=== PATIENT | female | born 1985 | race Caucasian/White ===

== ENCOUNTER 2023-05-22 04:07 | Inpatient (IN) | payer OTHER ==
[2023-05-22 05:40] VITALS: BMI 27.8
[2023-05-22] MEDS ORDERED: IBUPROFEN 400 MG TABLET (FP) PO PRN (08:16)
[2023-05-22] MEDS ORDERED: MAGNESIUM HYDROX 2400MG/30ML ORAL SUSPENSION 30 ML CUP PO PRN (08:16)
[2023-05-22] MEDS ORDERED: NALOXONE HCL (KLOXXADO) 8 MG SPRAY NS PRN (08:16)
[2023-05-22] MEDS ORDERED: IBUPROFEN 600 MG TABLET (FP) PO PRN (08:16)
[2023-05-22] MEDS ORDERED: BENZONATATE 200 MG CAPSULE PO PRN (08:16)
[2023-05-22] MEDS ORDERED: BISMUTH SUBSALICYLATE 524 MG/30 ML PO PRN (08:16)
[2023-05-22] MEDS ORDERED: LOPERAMIDE HCL 2 MG CAPSULE PO PRN (08:16)
[2023-05-22] MEDS ORDERED: hydrOXYzine PAMOATE 25 MG CAPSULE (FP) PO PRN (08:16)
[2023-05-22] MEDS ORDERED: NALOXONE HCL 0.4 MG/ML VIAL IM PRN (08:16)
[2023-05-22] MEDS ORDERED: POLYETHYLENE GLYCOL (HEALTHYLAX) 3350 17 GM PACKET PO PRN (08:16)
[2023-05-22] MEDS ORDERED: MAG HYDROX/AL HYDROX/SIMETH 30 ML UNIT-DOSE CUP PO PRN (08:16)
[2023-05-22] MEDS ORDERED: BENZOCAINE/MENTHOL (CHLORASEPTIC ) LOZENGE MM PRN (08:16)
[2023-05-22] MEDS ORDERED: ACETAMINOPHEN 325 MG TABLET (FP) PO PRN (08:16)
[2023-05-22] MEDS ORDERED: DICYCLOMINE HCL 10 MG CAPSULE PO PRN (08:16)
[2023-05-22] MEDS ORDERED: guaiFENesin 600 MG TABLET.ER (FP) PO PRN (08:16)
[2023-05-22] MEDS ORDERED: chlordiazePOXIDE HCL 25 MG CAPSULE PO PRN (08:24)
[2023-05-22] MEDS ORDERED: methaDONE HCL 10 MG TABLET (FOR DETOX USE ONLY) PO ONE (08:24)
[2023-05-22] MEDS ORDERED: ONDANSETRON *ODT* 4 MG TABLET ONE (08:53)
[2023-05-22] MEDS ORDERED: methaDONE HCL 10 MG TABLET (FOR DETOX USE ONLY) ONE (08:53)
[2023-05-22] MEDS: ONDANSETRON *ODT* 4 MG TABLET SL PRN (09:05)
[2023-05-22] MEDS: methaDONE HCL 10 MG TABLET (FOR DETOX USE ONLY) PO ONE (09:06)
[2023-05-22] MEDS: NICOTINE 14 MG/24 HOURS TOPICAL PATCH TD SCH (10:33)
[2023-05-22] MEDS: chlordiazePOXIDE HCL 25 MG CAPSULE PO SCH (10:33)
[2023-05-22] MEDS: PRENATAL VITAMINS W/ FOLIC ACID TABLET (FP) PO SCH (10:33)
[2023-05-22] MEDS: MELATONIN 5 MG TABLETS PO SCH (22:30)
[2023-05-22] MEDS: METHOCARBAMOL 500 MG TABLET PO PRN (22:32)
[2023-05-22] MEDS: THIAMINE 100 MG TABLET PO SCH (22:32)
[2023-05-22] MEDS: cloNIDine HCL 0.1 MG TABLET PO PRN (22:32)
[2023-05-23 12:01] LABS: HEMATOCRIT 41.3 % (32.4-45.2); HEMOGLOBIN 13.7 GM/dL (10.7-15.3); MCH 33.2 pg (25.7-33.7); MCHC 33.3 g/dl (32.0-36.0); MEAN CELL VOLUME 99.9 fl (80-96); MEAN PLT VOLUME 8.1 fl (7.5-11.1); PLATELET COUNT 258 10^3/uL (134-434); RBC 4.13 M/mm3 (3.60-5.2); RDW 14.3 % (11.6-15.6); WHITE BLOOD COUNT 7.5 K/mm3 (4.0-10.0)
[2023-05-23 12:03] LABS: POTASSIUM 4.2 mmol/L (3.5-5.1)
[2023-05-23 12:05] LABS: CALCIUM 8.5 mg/dL (8.5-10.1)
[2023-05-23 12:06] LABS: ALBUMIN 3.4 g/dl (3.4-5.0)
[2023-05-23 12:08] LABS: CREATININE 0.7 mg/dL (0.55-1.3)
[2023-05-23 12:10] LABS: BILIRUBIN,TOTAL 0.3 mg/dL (0.2-1); TOT PROT 7.1 g/dl (6.4-8.2)
[2023-05-23] MEDS: traZODone HCL 50 MG TABLET (FP) PO SCH (22:13)
[2023-05-24] MEDS: chlordiazePOXIDE HCL 25 MG CAPSULE PO SCH (05:26)
[2023-05-24] MEDS: methaDONE HCL 10 MG TABLET (FOR DETOX USE ONLY) PO ONE (10:14)
[2023-05-24] MEDS: NICOTINE POLACRILEX 2 MG GUM BUC PRN (17:34)
[2023-05-25] MEDS ORDERED: chlordiazePOXIDE HCL 10 MG CAPSULE PO PRN
[2023-05-25] MEDS: chlordiazePOXIDE HCL 10 MG CAPSULE PO SCH (05:30)
[2023-05-25 06:19] VITALS: RESP 16
[2023-05-25 09:52] VITALS: BP 101/60; PULSE 65; TEMP 97.9
[2023-05-26] MEDS ORDERED: chlordiazePOXIDE HCL 10 MG CAPSULE PO SCH (05:00)
[2023-05-26] MEDS ORDERED: methaDONE HCL 10 MG TABLET (FOR DETOX USE ONLY) PO ONE (10:00)
[2023-05-27] MEDS ORDERED: chlordiazePOXIDE HCL 10 MG CAPSULE PO ONE (05:00)
== END 2023-05-25 11:03 | disposition home or self-care (01) | DRG 773 ==
LOC: YASAS 04:07 → Y3N 09:10
PROVIDERS: ADMIT Allergy & Immunology; ATTEND Surgery
PROC: HZ2ZZZZ Detoxification Services for Substance Abuse Treatment (ICD-10-PCS; principal; 2023-05-22)
DX: F11.23 Opioid dependence with withdrawal (principal); F10.230 Alcohol dependence with withdrawal, uncomplicated; F13.20 Sedative, hypnotic or anxiolytic dependence, uncomplicated; F14.20 Cocaine dependence, uncomplicated; F12.20 Cannabis dependence, uncomplicated; F17.210 Nicotine dependence, cigarettes, uncomplicated; F19.280 Other psychoactive substance dependence with psychoactive substance-induced anxiety disorder; F19.24 Other psychoactive substance dependence with psychoactive substance-induced mood disorder; F32.A Depression, unspecified; Z62.810 Personal history of physical and sexual abuse in childhood; Z91.410 Personal history of adult physical and sexual abuse; Z88.8 Allergy status to other drugs, medicaments and biological substances; Z28.310 Unvaccinated for COVID-19; Z28.9 Immunization not carried out for unspecified reason
CPT/HCPCS: 36415; 80053; 80305; 80307; 81025; 85027; 86780; 93005; 93010; Q0162